=== PATIENT | female | born 1975 | race Caucasian/White ===

== ENCOUNTER → 2020-08-07 | Outpatient (CLI) | payer BC, OTHER ==
[~2020-08-07] MED LIST: COLACE 100MG C100 MG PO; ESTRACE1 MG PO; IBUPROFEN600 MG PO; NORCO 10-325 T1 EACH PO
== END ==
LOC: RAD 07:50
DX: R10.13 Epigastric pain (principal); K44.9 Diaphragmatic hernia without obstruction or gangrene
CPT/HCPCS: 74220